=== PATIENT | male | born 2000 | race African-American/Black ===

== ENCOUNTER 2018-11-16 10:12 | Emergency (ER) | payer OTHER, SELFPAY ==
[~2018-11-16] VITALS: Ht 193 cm; Wt 77.1 kg
[2018-11-16] MEDS ORDERED: HYDROcodone/APAP 5/325MG 1 TAB TABLET PO ONE (10:30)
[2018-11-16] MEDS ORDERED: CYCLOBENZAPRINE 10 MG TABLET. PO ONE (10:30)
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
[2018-11-16] MEDS ORDERED: CYCL10TA2 PO (11:39)
[2018-11-16] MEDS ORDERED: NAPR500T8 PO (11:39)
[2018-11-16 11:50] VITALS: BP 121/77
== END 2018-11-16 11:50 | disposition home or self-care (01) ==
LOC: ER 10:12
DX: S80.11XA Contusion of right lower leg, initial encounter (principal); M25.551 Pain in right hip; V43.52XA Car driver injured in collision with other type car in traffic accident, initial encounter; Y93.89 Activity, other specified; Y92.410 Unspecified street and highway as the place of occurrence of the external cause; Y99.8 Other external cause status
CPT/HCPCS: 73502; 73590; 99284